=== PATIENT | male | born 1990 | race African-American/Black ===

== ENCOUNTER 2016-09-20 22:26 | Emergency (ER) | payer OTHER ==
[~2016-09-20] VITALS: Ht 172.7 cm; Wt 77.1 kg
[2016-09-20 22:33] VITALS: BP 124/73
[2016-09-20 22:44] LABS: BILIRUBIN,URINE NEGATIVE (NEG); GLUCOSE,URINE NEGATIVE (NEG); NITRITE,URINE NEGATIVE (NEG); PROTEIN,URINE NEGATIVE (NEG-TRACE)
--- NOTE | 2016-09-20 22:47 | PHYS DOC ---
Past Medical History Past Medical History: No Pertinent History Past Surgical History: No Surgical History Alcohol Use: Occasionally Drug Use: None Adult General Chief Complaint Chief Complaint: SEXUALLY TRANSMITTED DISEASE HPI HPI Patient is a 26 year old male who presents requesting to be tested for STDs. Patient will not give any further information. He denies any symptoms. Review of Systems Review of Systems Constitutional: Denies fever or chills [] Eyes: Denies change in visual acuity, redness, or eye pain [] GI: Denies abdominal pain, nausea, vomiting, bloody stools or diarrhea [] : STD check Musculoskeletal: Denies back pain or joint pain [] Integument: Denies rash or skin lesions [] Neurologic: Denies headache, focal weakness or sensory changes [] Endocrine: Denies polyuria or polydipsia [] Current Medications Current Medications Current Medications Medications (Trade) Dose Ordered Sig/Marquise Start Time Stop Time Status Last Admin Dose Admin Azithromycin (Zithromax) 1,000 mg 1X ONCE 09/20/16 22:45 09/20/16 22:46 UNV Ceftriaxone Sodium (Rocephin Im) 250 mg 1X ONCE 09/20/16 22:45 09/20/16 22:46 UNV Metronidazole (Flagyl) 2,000 mg 1X ONCE 09/20/16 22:45 09/20/16 22:46 UNV Allergies Allergies Allergies Coded Allergies Type Severity Reaction Last Updated Verified No Known Drug Allergies 09/20/16 No Physical Exam Physical Exam Constitutional: Well developed, well nourished, no acute distress, non-toxic appearance. [] HENT: Normocephalic, atraumatic, bilateral external ears normal, oropharynx moist, no oral exudates, nose normal. [] Abdomen: Bowel sounds normal, soft, no tenderness, no masses, no pulsatile masses. [] Skin: Warm, dry, no erythema, no rash. [] Back: No tenderness, no CVA tenderness. [] Extremities: No tenderness, no cyanosis, no clubbing, ROM intact, no edema. [] Neurologic: Alert and oriented X 3, normal motor function, normal sensory function, no focal deficits noted. [] Psychologic: Affect normal, judgement normal, mood normal. [] Current Patient Data Vital Signs Vital Signs Date Time Temp Pulse Resp B/P (MAP) Pulse Ox O2 Delivery O2 Flow Rate FiO2 09/20/16 22:33 98.5 75 18 97 Room Air 98.5 EKG EKG [] Radiology/Procedures Radiology/Procedures [] Course & Med Decision Making Course & Med Decision Making Pertinent Labs and Imaging studies reviewed. (See chart for details) Patient is in the ED with concern for STDs. His urine was sent to lab. He was treated prophylaxis with Rocephin, azithromycin and Flagyl and educated on STDs and the need to use protection. Dragon Disclaimer Dragon Disclaimer This electronic medical record was generated, in whole or in part, using a voice recognition dictation system. Departure Departure Impression: Primary Impression: Concern about STD in male without diagnosis Disposition: HOME, SELF-CARE Condition: STABLE Referrals: NON,STAFF (PCP) Follow-up with the health department for further STD concerns Patient Instructions: Sexually Transmitted Disease Additional Instructions: You were seen for STD concerns. Your urine was sent to lab to be checked for STDs. We will only call you if the results are positive after 3 days. If you dont not hear from us in 3-7 days the results are probably negative. Contact all your sex partners, let them know you were treated for STDs and ask them to seek treatment too. Use protection at all times. [employer] Sep 20, 2016 22:47
[2016-09-20 22:52] LABS: BACTERIA,URINE 0 /HPF (0-FEW); RBC,URINE RARE /HPF (0-2); WBC,URINE OCC /HPF (0-4)
[2016-09-20] MEDS ORDERED: metroNIDAZOLE 500 MG TABLET PO ONE (23:00)
[2016-09-20] MEDS ORDERED: cefTRIAXone IM 250 MG VIAL IM ONE (23:00)
[2016-09-20] MEDS ORDERED: AZITHROMYCIN 250 MG TABLET. PO ONE (23:00)
== END 2016-09-20 23:01 | disposition home or self-care (01) ==
LOC: ER 22:26
DX: Z20.2 Contact with and (suspected) exposure to infections with a predominantly sexual mode of transmission (principal)
CPT/HCPCS: 81001; 87491; 87591; 96372; 99284; J0696; Q0144

== ENCOUNTER 2016-10-24 13:33 | Emergency (ER) | payer OTHER ==
[~2016-10-24] VITALS: Ht 172.7 cm; Wt 74.8 kg
[2016-10-24 13:58] VITALS: BP 119/68
== END 2016-10-24 14:55 | disposition left against medical advice (07) ==
LOC: ER 13:33
DX: L65.9 Nonscarring hair loss, unspecified (principal); Z53.21 Procedure and treatment not carried out due to patient leaving prior to being seen by health care provider

== ENCOUNTER 2019-09-14 02:09 | Emergency (ER) | payer MEDICAID, OTHER ==
[~2019-09-14] VITALS: Ht 175.3 cm; Wt 81.8 kg
[2019-09-14 02:15] VITALS: BP 135/87
--- NOTE | 2019-09-14 02:39 | PHYS DOC ---
Past Medical History Past Medical History: No Pertinent History Past Surgical History: No Surgical History Smoking Status: Current Every Day Smoker Alcohol Use: Occasionally Drug Use: None General Adult EDM: Chief Complaint: SEXUALLY TRANSMITTED DISEASE HPI: HPI: Patient is a 29 year old male presenting to the ED with chief complaint of exposure to STD. Patient states that he recently had unprotected sex with a new partner. Patient states that he has discharge from his penis. Patient denies fever, chills, nausea, vomiting, diarrhea, chest pain, shortness of breath. Review of Systems: Review of Systems: Constitutional: Denies fever or chills. [] Eyes: Denies change in visual acuity. [] HENT: Denies nasal congestion or sore throat. [] Respiratory: Denies cough or shortness of breath. [] Cardiovascular: Denies chest pain or edema. [] GI: Denies abdominal pain, nausea, vomiting, bloody stools or diarrhea. [] : Complains of penile discharge [] Neurologic: Denies headache, focal weakness or sensory changes. [] Heart Score: Risk Factors: Risk Factors: DM, Current or recent (<one month) smoker, HTN, HLP, family history of CAD, obesity. Risk Scores: Score 0 - 3: 2.5% MACE over next 6 weeks - Discharge Home Score 4 - 6: 20.3% MACE over next 6 weeks - Admit for Clinical Observation Score 7 - 10: 72.7% MACE over next 6 weeks - Early Invasive Strategies Allergies: Allergies: Allergies Coded Allergies Type Severity Reaction Last Updated Verified No Known Drug Allergies 09/20/16 No Physical Exam: PE: Constitutional: Well developed, well nourished, no acute distress, non-toxic appearance. [] HENT: Normocephalic, atraumatic Eyes: EOMI Neck: Normal range of motion, Supple Respiratory: No respiratory distress Abdomen: Bowel sounds normal, soft, no tenderness Extremities: No tenderness, ROM intact Neurologic: Alert and oriented X 3 Current Patient Data: Vital Signs: Vital Signs Date Time Temp Pulse Resp B/P (MAP) Pulse Ox O2 Delivery O2 Flow Rate FiO2 09/14/19 02:15 98.2 89 18 135/87 (103) 98 Room Air 98.2 EKG: EKG: [] Radiology/Procedures: Radiology/Procedures: [] Course & Med Decision Making: Course & Med Decision Making Pertinent Labs reviewed. (See chart for details) Ordered UA, chlamydia gonorrhea test. Patient was to be treated and does not await for the results. UA does not show UTI. Discussed results and plan of care with patient. Patient is instructed to follow up with PCP in one to 2 days. Appropriate discharge instructions given to patient to return to the ED or to seek immediate medical evaluation. Patient is instructed to return to the ED if symptoms worsen or if any concerns. Dragon Disclaimer: Dragon Disclaimer: This electronic medical record was generated, in whole or in part, using a voice recognition dictation system. Departure Departure Impression: Primary Impression: Urethritis Additional Impression: STD (male) Disposition: HOME, SELF-CARE Condition: STABLE Referrals: NO PCP (PCP) Patient Instructions: Urethritis, Adult Additional Instructions: Please return to the ED if symptoms worsen or if any concerns. Please follow-up with PCP in 1 to 2 days. Please refrain from sexual activity until symptoms have resolved for 14 days. Justicifation of Admission Dx: Justifications for Admission: Justification of Admission Dx: DEONTE Van DO Sep 14, 2019 02:39
[2019-09-14 02:44] LABS: BILIRUBIN,URINE NEGATIVE (NEG); CLARITY,URINE CLEAR; COLOR,URINE YELLOW; NITRITE,URINE NEGATIVE (NEG); PH,URINE 6.5 (<5.0-8.0); PROTEIN,URINE NEGATIVE (NEG-TRACE)
[2019-09-14 02:59] LABS: BACTERIA,URINE MODERATE /HPF (0-FEW); HYALINE CASTS, URINE OCCASIONAL /HPF; SQUAMOUS EPITHELIAL CELL,UR FEW /LPF
[2019-09-14] MEDS ORDERED: cefTRIAXone IM 250 MG VIAL IM ONE (03:00)
[2019-09-14] MEDS ORDERED: ONDANSETRON ODT 4 MG TAB.RAPDIS. PO ONE (03:00)
[2019-09-14] MEDS ORDERED: metroNIDAZOLE 500 MG TABLET PO ONE (03:00)
[2019-09-14] MEDS ORDERED: AZITHROMYCIN 250 MG TABLET. PO ONE (03:00)
== END 2019-09-14 03:46 | disposition home or self-care (01) ==
LOC: ER 02:09
DX: N34.2 Other urethritis (principal); A64 Unspecified sexually transmitted disease; R36.9 Urethral discharge, unspecified; F17.200 Nicotine dependence, unspecified, uncomplicated
CPT/HCPCS: 81001; 87086; 87491; 87591; 96372; 99284; J0696